=== PATIENT | female | born 1950 | race Caucasian/White ===

== ENCOUNTER 2018-10-19 12:03 | Inpatient (IN) | payer MEDICARE, OTHER ==
[~2018-10-19] VITALS: Ht 170.2 cm; Wt 95.0 kg
[~2018-10-19 12:03] MED LIST: CALCIUM PO; LEVO150T5 PO; LOSA25TA6 PO; MAGNESIUM PO; MULT-516 PO; NAPR220C2 PO; NIACIN PO; VITA100C8 PO; VITA1TAB19 PO; VITAMIN C PO; VITAMIN D PO
[2018-10-19 14:33] VITALS: BP 125/73
[2018-10-19] MEDS ORDERED: HYDROmorphone 2 MG/ML, 1ML IVPush PRN (15:30)
[2018-10-19] MEDS ORDERED: ONDANSETRON 2MG/ML, 2ML IVPush PRN (15:30)
[2018-10-19] MEDS ORDERED: hydrALAzine 20 MG/ML, 1ML IVPush PRN (15:30)
[2018-10-19] MEDS ORDERED: PLEASE ENTER HEIGHT AND WEIGHT MC SCH (16:30)
[2018-10-19 16:35] LABS: HCT (SEDRATE) 35.3 % (34.6-47.8)
[2018-10-19] MEDS ORDERED: PHARMACOKINETIC MONITORING MC PRN (17:00)
[2018-10-19] MEDS ORDERED: VANCOMYCIN PER PHARMACY MC PRN (17:00)
[2018-10-19] MEDS ORDERED: PHARMACOKINETIC CONSULTATION MC ONE (17:00)
[2018-10-19 17:09] LABS: BASOPHILS # (AUTO) 0.02 x10^3/uL (0-0.1); BASOPHILS % (AUTO) 0 % (0-1); EOSINOPHILS % (AUTO) 1 % (1-7); LYMPHOCYTES # (AUTO) 1.08 x10^3/uL (1-3.4); LYMPHOCYTES % (AUTO) 14 % (22-44); MD NO; MEAN CORPUSCULAR HGB CONC 34.4 g/dL (32.4-35.8); MEAN CORPUSCULAR VOLUME 90.2 fL (80-100); MEAN PLATELET VOLUME 8.5 fL (7.4-10.4); MONOCYTES # (AUTO) 0.72 x10^3/uL (0.2-0.8); MONOCYTES % (AUTO) 10 % (2-9); NEUTROPHILS # (AUTO) 5.54 x10^3/uL (1.8-6.8); NEUTROPHILS % (AUTO) 74 % (42-75); PLATELET COUNT 227 x10^3/uL (130-400); RED BLOOD COUNT 3.93 x10^6/uL (3.82-5.3); RED CELL DISTRIBUTION WIDTH 12.3 % (9.6-15.2)
[2018-10-19 17:14] LABS: INTERNATIONAL NORMALIZED RATIO 1.01 (0.93-1.1); PROTHROMBIN TIME 10.7 Seconds (9.6-11.5)
[2018-10-19 17:17] LABS: ALBUMIN 3.1 g/dL (3.4-5.0); ANION GAP 9 mmol/L (5-15); CALCIUM 8.6 mg/dL (8.5-10.1); CHLORIDE 106 mmol/L (98-107)
[2018-10-19 17:20] LABS: CREATININE 0.76 mg/dL (0.55-1.02)
[2018-10-19 17:21] LABS: ALANINE AMINOTRANSFERASE 51 U/L (12-78); ALKALINE PHOSPHATASE 118 U/L (45-117); BILIRUBIN,TOTAL 0.8 mg/dL (0.2-1.0)
[2018-10-19] MEDS ORDERED: ENOXAPARIN 40 MG/0.4 ML SQ SCH (18:00)
[2018-10-19] MEDS: CEFEPIME 1 GM in DEXTROSE 5% 50 ML IV SCH (20:52)
[2018-10-19] MEDS: OXYcodone/APAP 5/325MG TABLET PO PRN (21:20)
[2018-10-19] MEDS: FAMOTIDINE 20 MG TABLET PO SCH (21:20)
[2018-10-19] MEDS: SODIUM CHLORIDE 0.9% 1,000 ML IV SCH (21:23)
[2018-10-19 21:35] VITALS: BP 118/65
[2018-10-19 21:55] VITALS: BP 136/53
[2018-10-20] MEDS: OXYcodone/APAP 5/325MG TABLET PO PRN ×5 (02:28→20:19)
[2018-10-20 02:33] VITALS: BP 115/71
[2018-10-20] MEDS: CEFEPIME 1 GM in DEXTROSE 5% 50 ML IV SCH ×3 (04:32→20:19)
[2018-10-20 05:23] LABS: CHLORIDE 110 mmol/L (98-107)
[2018-10-20 05:28] LABS: ALANINE AMINOTRANSFERASE 59 U/L (12-78); ALBUMIN 2.8 g/dL (3.4-5.0); ALKALINE PHOSPHATASE 138 U/L (45-117); ANION GAP 9 mmol/L (5-15); BILIRUBIN,TOTAL 0.7 mg/dL (0.2-1.0); CALCIUM 8.2 mg/dL (8.5-10.1); TOTAL PROTEIN 6.2 g/dL (6.4-8.2)
[2018-10-20 05:35] LABS: BASOPHILS # (AUTO) 0.03 x10^3/uL (0-0.1); BASOPHILS % (AUTO) 0 % (0-1); EOSINOPHILS # (AUTO) 0.16 x10^3/uL (0-0.4); EOSINOPHILS % (AUTO) 2 % (1-7); LYMPHOCYTES # (AUTO) 1.34 x10^3/uL (1-3.4); LYMPHOCYTES % (AUTO) 20 % (22-44); MD NO; MEAN CORPUSCULAR HEMOGLOBIN 30.4 pg (27.0-34.8); MEAN CORPUSCULAR HGB CONC 33.7 g/dL (32.4-35.8); MEAN CORPUSCULAR VOLUME 90.2 fL (80-100); MEAN PLATELET VOLUME 8.9 fL (7.4-10.4); MONOCYTES # (AUTO) 0.87 x10^3/uL (0.2-0.8); MONOCYTES % (AUTO) 13 % (2-9); NEUTROPHILS # (AUTO) 4.46 x10^3/uL (1.8-6.8); NEUTROPHILS % (AUTO) 65 % (42-75); PLATELET COUNT 253 x10^3/uL (130-400); RED BLOOD COUNT 3.88 x10^6/uL (3.82-5.3); RED CELL DISTRIBUTION WIDTH 12.4 % (9.6-15.2)
[2018-10-20] MEDS: VANCOMYCIN 1,800 MG in SODIUM CHLORIDE 0.9% 250 ML IV SCH (06:41)
[2018-10-20] MEDS: SODIUM CHLORIDE 0.9% 1,000 ML IV SCH ×3 (06:48→23:11)
[2018-10-20 09:12] VITALS: BP 107/59
[2018-10-20] MEDS: LOSARTAN 25MG TABLET PO SCH (09:14)
[2018-10-20] MEDS: LEVOTHYROXINE 150 MCG TABLET PO SCH (09:23)
[2018-10-20] MEDS: MULTIVITAMIN 1 TABLET PO SCH (09:23)
[2018-10-20] MEDS: FAMOTIDINE 20 MG TABLET PO SCH ×2 (09:23→20:18)
[2018-10-20] MEDS ORDERED: POTASSIUM CHLORIDE 20 MEQ TAB.ER.PRT PO ONE (09:30)
[2018-10-20 10:08] VITALS: BP 107/70
[2018-10-20 10:38] LABS: FREE T4 (FREE THYROXINE) 1.24 ng/dL (0.76-1.46); THYROID STIMULATING HORMONE 7.84 mIU/L (0.358-3.740)
[2018-10-20] MEDS ORDERED: METOPROLOL TARTRATE 25 MG TABLET PO ONE (11:30)
[2018-10-20 12:36] LABS: CHOL/HDL RATIO 4.1; LDL/HDL RATIO 2.6 (0.5-3.0)
[2018-10-20 12:46] LABS: HEMOGLOBIN A1C 5.5 % (4.2-6.3)
[2018-10-20 13:29] VITALS: BP 100/64
[2018-10-20] MEDS: METOPROLOL TARTRATE 25 MG TABLET PO SCH (17:15)
[2018-10-20] MEDS: POLYETHYLENE GLYCOL 17 GM PACKET PO PRN (17:15)
[2018-10-20 19:19] VITALS: BP 139/84
[2018-10-20] MEDS: APIXABAN 5 MG TABLET PO SCH (20:18)
[2018-10-21 01:48] VITALS: BP 142/83
[2018-10-21] MEDS: OXYcodone/APAP 5/325MG TABLET PO PRN ×4 (02:40→19:41)
[2018-10-21] MEDS: CEFEPIME 1 GM in DEXTROSE 5% 50 ML IV SCH ×2 (04:33→12:26)
[2018-10-21 06:06] VITALS: BP 134/70
[2018-10-21] MEDS: VANCOMYCIN 1,800 MG in SODIUM CHLORIDE 0.9% 250 ML IV SCH (06:07)
[2018-10-21] MEDS: METOPROLOL TARTRATE 25 MG TABLET PO SCH ×2 (06:07→17:43)
[2018-10-21] MEDS: LEVOTHYROXINE 150 MCG TABLET PO SCH (06:07)
[2018-10-21] MEDS: DOCUSATE 100 MG CAPSULE PO PRN ×2 (06:20→21:34)
[2018-10-21 07:37] LABS: BASOPHILS # (AUTO) 0.05 x10^3/uL (0-0.1); BASOPHILS % (AUTO) 1 % (0-1); EOSINOPHILS # (AUTO) 0.21 x10^3/uL (0-0.4); EOSINOPHILS % (AUTO) 3 % (1-7); LYMPHOCYTES # (AUTO) 1.31 x10^3/uL (1-3.4); LYMPHOCYTES % (AUTO) 21 % (22-44); MD NO; MEAN CORPUSCULAR HEMOGLOBIN 30.5 pg (27.0-34.8); MEAN CORPUSCULAR HGB CONC 33.8 g/dL (32.4-35.8); MEAN CORPUSCULAR VOLUME 90.2 fL (80-100); MEAN PLATELET VOLUME 7.8 fL (7.4-10.4); MONOCYTES # (AUTO) 0.74 x10^3/uL (0.2-0.8); MONOCYTES % (AUTO) 12 % (2-9); NEUTROPHILS # (AUTO) 3.97 x10^3/uL (1.8-6.8); NEUTROPHILS % (AUTO) 63 % (42-75); PLATELET COUNT 253 x10^3/uL (130-400); RED BLOOD COUNT 3.53 x10^6/uL (3.82-5.3); RED CELL DISTRIBUTION WIDTH 12.8 % (9.6-15.2)
[2018-10-21 07:48] LABS: ALBUMIN 2.7 g/dL (3.4-5.0); ANION GAP 6 mmol/L (5-15); CALCIUM 8.3 mg/dL (8.5-10.1); CHLORIDE 110 mmol/L (98-107); CREATININE 0.65 mg/dL (0.55-1.02)
[2018-10-21] MEDS: FAMOTIDINE 20 MG TABLET PO SCH ×2 (08:57→21:34)
[2018-10-21] MEDS: MULTIVITAMIN 1 TABLET PO SCH (08:57)
[2018-10-21] MEDS: APIXABAN 5 MG TABLET PO SCH ×2 (08:58→21:33)
[2018-10-21] MEDS: LOSARTAN 25MG TABLET PO SCH (08:58)
[2018-10-21] MEDS: SODIUM CHLORIDE 0.9% 1,000 ML IV SCH (12:32)
[2018-10-21 13:37] VITALS: BP 123/75
[2018-10-21] MEDS: POLYETHYLENE GLYCOL 17 GM PACKET PO PRN (14:05)
[2018-10-21 19:39] VITALS: BP 127/78
[2018-10-21 19:47] VITALS: BP 119/66
[2018-10-21] MEDS: LACTOBACILLUS CHEW TABLET PO SCH (21:34)
[2018-10-21] MEDS: DOXYCYCLINE 100MG TABLET PO SCH (21:34)
[2018-10-21] MEDS ORDERED: OMNIPAQUE 350 MG/ML, 100ML BOTTLE ONE (23:28)
[2018-10-22] MEDS: OXYcodone/APAP 5/325MG TABLET PO PRN ×4 (00:13→20:06)
[2018-10-22 00:56] VITALS: BP 126/73
[2018-10-22] MEDS ORDERED: FUROSEMIDE 40 MG TABLET PO ONE (01:30)
[2018-10-22 04:49] VITALS: BP 123/75
[2018-10-22] MEDS: LEVOTHYROXINE 150 MCG TABLET PO SCH (04:50)
[2018-10-22] MEDS: METOPROLOL TARTRATE 25 MG TABLET PO SCH ×2 (04:50→17:44)
[2018-10-22 05:31] LABS: BASOPHILS # (AUTO) 0.07 x10^3/uL (0-0.1); BASOPHILS % (AUTO) 1 % (0-1); EOSINOPHILS % (AUTO) 3 % (1-7); LYMPHOCYTES # (AUTO) 1.18 x10^3/uL (1-3.4); LYMPHOCYTES % (AUTO) 16 % (22-44); MD NO; MEAN CORPUSCULAR HGB CONC 34.2 g/dL (32.4-35.8); MEAN CORPUSCULAR VOLUME 90.8 fL (80-100); MEAN PLATELET VOLUME 8.3 fL (7.4-10.4); MONOCYTES % (AUTO) 11 % (2-9); NEUTROPHILS # (AUTO) 5.16 x10^3/uL (1.8-6.8); NEUTROPHILS % (AUTO) 70 % (42-75); PLATELET COUNT 280 x10^3/uL (130-400); RED BLOOD COUNT 3.61 x10^6/uL (3.82-5.3); RED CELL DISTRIBUTION WIDTH 12.9 % (9.6-15.2)
[2018-10-22 05:41] LABS: ALBUMIN 2.8 g/dL (3.4-5.0); ANION GAP 6 mmol/L (5-15); CALCIUM 8.4 mg/dL (8.5-10.1); CHLORIDE 106 mmol/L (98-107); CREATININE 0.76 mg/dL (0.55-1.02)
[2018-10-22 06:51] VITALS: BP 107/68
[2018-10-22] MEDS: DOXYCYCLINE 100MG TABLET PO SCH ×2 (08:16→20:06)
[2018-10-22] MEDS: LOSARTAN 25MG TABLET PO SCH (08:17)
[2018-10-22] MEDS: APIXABAN 5 MG TABLET PO SCH ×2 (08:37→20:06)
[2018-10-22] MEDS: FAMOTIDINE 20 MG TABLET PO SCH ×2 (08:37→20:06)
[2018-10-22] MEDS: MULTIVITAMIN 1 TABLET PO SCH (08:37)
[2018-10-22] MEDS: LACTOBACILLUS CHEW TABLET PO SCH ×3 (08:38→20:06)
[2018-10-22 12:45] VITALS: BP 130/75
[2018-10-22] MEDS ORDERED: FUROSEMIDE 20 MG/2 ML IV ONE (18:30)
[2018-10-22] MEDS ORDERED: POTASSIUM CHLORIDE 10% 40 MEQ/30 ML UDC PO ONE (18:30)
[2018-10-22 19:54] VITALS: BP 139/79
[2018-10-22] MEDS: DOCUSATE 100 MG CAPSULE PO PRN (20:06)
[2018-10-23] MEDS: OXYcodone/APAP 5/325MG TABLET PO PRN ×3 (00:30→12:16)
[2018-10-23 01:16] VITALS: BP 136/72
[2018-10-23] MEDS: LEVOTHYROXINE 150 MCG TABLET PO SCH (05:42)
[2018-10-23] MEDS: METOPROLOL TARTRATE 25 MG TABLET PO SCH (05:42)
[2018-10-23 06:41] LABS: ALBUMIN 2.9 g/dL (3.4-5.0); ANION GAP 9 mmol/L (5-15); CALCIUM 8.7 mg/dL (8.5-10.1); CHLORIDE 104 mmol/L (98-107); CREATININE 0.74 mg/dL (0.55-1.02)
[2018-10-23 06:45] LABS: BASOPHILS # (AUTO) 0.03 x10^3/uL (0-0.1); BASOPHILS % (AUTO) 1 % (0-1); EOSINOPHILS # (AUTO) 0.21 x10^3/uL (0-0.4); EOSINOPHILS % (AUTO) 3 % (1-7); LYMPHOCYTES % (AUTO) 19 % (22-44); MD NO; MEAN CORPUSCULAR HEMOGLOBIN 31.2 pg (27.0-34.8); MEAN CORPUSCULAR HGB CONC 34.6 g/dL (32.4-35.8); MEAN CORPUSCULAR VOLUME 90.3 fL (80-100); MEAN PLATELET VOLUME 8.1 fL (7.4-10.4); MONOCYTES # (AUTO) 1.08 x10^3/uL (0.2-0.8); MONOCYTES % (AUTO) 16 % (2-9); NEUTROPHILS # (AUTO) 4.23 x10^3/uL (1.8-6.8); NEUTROPHILS % (AUTO) 62 % (42-75); PLATELET COUNT 323 x10^3/uL (130-400); RED BLOOD COUNT 3.92 x10^6/uL (3.82-5.3); RED CELL DISTRIBUTION WIDTH 12.7 % (9.6-15.2)
[2018-10-23 07:00] VITALS: BP 146/78
[2018-10-23] MEDS ORDERED: FUROSEMIDE 20 MG TABLET PO SCH (08:00)
[2018-10-23] MEDS: MULTIVITAMIN 1 TABLET PO SCH (08:33)
[2018-10-23] MEDS: DOXYCYCLINE 100MG TABLET PO SCH (08:34)
[2018-10-23] MEDS: APIXABAN 5 MG TABLET PO SCH (08:34)
[2018-10-23] MEDS: FAMOTIDINE 20 MG TABLET PO SCH (08:34)
[2018-10-23] MEDS: LOSARTAN 25MG TABLET PO SCH (08:34)
[2018-10-23] MEDS: LACTOBACILLUS CHEW TABLET PO SCH (08:35)
[2018-10-23] MEDS ORDERED: POTASSIUM CHLORIDE 20 MEQ TAB.ER.PRT PO SCH (09:00)
[2018-10-23] MEDS ORDERED: APIX5TAB PO (09:16)
[2018-10-23] MEDS ORDERED: LOSA25TA6 PO (09:16)
[2018-10-23] MEDS ORDERED: TRAM50TA2 PO (09:16)
[2018-10-23] MEDS ORDERED: DOXY100T PO (09:16)
[2018-10-23] MEDS ORDERED: FURO20TA3 PO (09:16)
[2018-10-23] MEDS ORDERED: METO25TA35 PO (09:18)
[2018-10-23 12:13] VITALS: BP 113/71
== END 2018-10-23 15:09 | disposition home or self-care (01) | DRG 559 ==
LOC: 4NOR 13:48 → 4EST 10-20 09:37 → DCLOUNGE 10-23 14:52
PROVIDERS: ADMIT Internal Medicine; ATTEND Internal Medicine
DX: T84.54XA Infection and inflammatory reaction due to internal left knee prosthesis, initial encounter (principal); I50.33 Acute on chronic diastolic (congestive) heart failure; L03.116 Cellulitis of left lower limb; Y83.1 Surgical operation with implant of artificial internal device as the cause of abnormal reaction of the patient, or of later complication, without mention of misadventure at the time of the procedure; Y92.89 Other specified places as the place of occurrence of the external cause; E03.9 Hypothyroidism, unspecified; I48.0 Paroxysmal atrial fibrillation; E04.1 Nontoxic single thyroid nodule; I11.0 Hypertensive heart disease with heart failure; M43.16 Spondylolisthesis, lumbar region; R91.1 Solitary pulmonary nodule; Z96.651 Presence of right artificial knee joint; Z88.5 Allergy status to narcotic agent; Z88.8 Allergy status to other drugs, medicaments and biological substances; Z90.710 Acquired absence of both cervix and uterus
CPT/HCPCS: 36415; 71045; 71275; 74176; 80053; 80061; 80069; 83036; 83735; 83880; 84439; 84443; 85025; 85610; 85651; 87040; 93005; 93306; G0378; J0692; J3370; Q9967; J1940; J7030; J7050